=== PATIENT | male | born 1950 | race Caucasian/White ===

== ENCOUNTER 2020-09-30 07:59 | Day surgery (SDC) | payer OTHER ==
[2020-09-27 13:12] LABS: Absolute Lymphocytes (CBC) 1.4 K/uL (0.7-4.9); Basophils % 1.2 % (0-1.3); Hematocrit 36.5 % (39.6-49.0); Lymphocytes % 24.5 % (15.3-44.8); MPV 7.9 fL (7.6-11.3); RBC Red Blood Cell Count 4.95 M/uL (4.33-5.43)
[2020-09-27 13:25] LABS: Potassium 4.6 mmol/L (3.5-5.1)
--- NOTE | 2020-09-27 15:05 | RAD REPORT ---
EXAM DESCRIPTION: Jannet Dubose (2 Views)09/27/2020 2:49 pm CLINICAL HISTORY: Z01.812 COMPARISON: None FINDINGS: The lungs appear clear of acute infiltrate. The heart is normal size IMPRESSION: No acute abnormalities displayed
[2020-09-30] MEDS ORDERED: CEFAZOLIN/SWI 1gm 1 GM/10 ML SYR ONE (08:52)
[2020-09-30] MEDS ORDERED: NA CHLORIDE 0.9% 1,000 ML ONE (08:52)
[2020-09-30] MEDS ORDERED: propofoL 200 MG/20 ML VIAL IV ONE (09:19)
[2020-09-30] MEDS ORDERED: MIDAZOLAM HCL 2 MG/2 ML INJ ONE (09:20)
[2020-09-30] MEDS ORDERED: dexAMETHasone 10 MG/ML VIAL ONE (09:20)
[2020-09-30] MEDS ORDERED: FENTANYL CITR 100 MCG/2 ML ONE (09:20)
[2020-09-30] MEDS ORDERED: LIDOCAINE 1% MPF 2 ML AMPULE ONE (09:20)
[2020-09-30] MEDS ORDERED: KETOROLAC 30 MG/ML INJ ONE (09:20)
[2020-09-30] MEDS ORDERED: ONDANSETRON 4 MG/2 ML VIAL ONE (09:20)
--- NOTE | 2020-09-30 09:56 | P.BOP ---
Preoperative diagnosis: left anterior neck tender enlarging SubQ mass Postoperative diagnosis: same Primary procedure: Excisional biopsy Left anterior neck SubQ mass 3x3 cm Estimated blood loss: <10cc Specimen: mass Findings: as above Anesthesia: General Complications: None Transferred to: Recovery Room Condition: Good
[2020-09-30] MEDS ORDERED: TRAMADOL 37.5mg/APAP 325mg PER TAB PO ONE (10:55)
[2020-09-30] MEDS ORDERED: TRAMADOL 37.5mg/APAP 325mg PER TAB ONE (11:12)
[2020-09-30 12:06] VITALS: BP 144/85; TEMP 97.2; O2SAT 97
--- NOTE | 2020-09-30 16:05 | EKG ---
Test Date: 2020-09-30 Test Time: 08:07:14 Environmental Protection Inspector: TG MEASUREMENT RESULTS: Intervals: Rate: 74 MO: 166 QRSD: 80 QT: 414 QTc: 459 [place]: P: 30 MO: 166 QRS: -20 T: 38 INTERPRETIVE STATEMENTS: Normal sinus rhythm Inferior infarct, age undetermined Abnormal ECG Compared to ECG 11/26/2014 15:55:33 Myocardial infarct finding now present Sinus tachycardia no longer present Fusion complex(es) no longer present Ventricular premature complex(es) no longer present Electronically Signed On 09-30-20 16:03:50 CDT by Shai Bentley
--- NOTE | 2020-09-30 19:48 | DS ---
Date of Discharge: 09/30/2020 Diagnosis: Left anterior neck tender large subcutaneous mass. Procedure: Excisional biopsy of left anterior neck subcutaneous mass, 3 x 3 cm. Disposition: Home. Activity: As tolerated. No heavy lifting. Discharge Instructions: Keep area dry for 48 hours, then may shower. Keep Steri-Strip intact. Medications: Include Cipro 500 p.o. q.12. He is taking Ultracet. He does not have anymore. We are going to give him some Ultracet for pain q.6 hours p.r.n. pain. ERROL/MARIANN Voice ID: [id number] Report ID: [id number]
--- NOTE | 2020-09-30 19:48 | OP ---
Date of Procedure: 09/30/2020 Surgeon: Bhupinder Fernandez MD Preoperative Diagnosis: Left anterior neck tender large subcutaneous mass. Postoperative Diagnosis: Left anterior neck tender large subcutaneous mass. Procedure: Excisional biopsy of left anterior neck subcutaneous mass 3 x 3 cm. Anesthesia: General plus local. Indications: This is the case of a 70-year-old patient who has a neck mass increasing in size and te nderness. He wants that excised. The benefits, alternatives, and risks of excision were fully expla ined which include, but not limited to infection, bleeding, damage to adjacent structures, anesthesia complication, CO and even . He also understands this may not relieve his symptoms. He might n eed more than one surgical intervention depends on the final pathology. He understood, signed a cons ent. Procedure In Detail: The patient was brought to the operating room, placed in supine position. Anes thesia was done without complication. A time-out was called. Left neck was prepped and draped in a sterile fashion. A curvilinear incision was made with a knife after injecting local anesthetic. The mass was all the way down to subcutaneous tissue, does not penetrate the muscle. The mass was remov ed intact. The area was irrigated. This was closed in deep layers with 3-0 chromic, mid layers with 3-0 chromic and skin with 3-0 nylon. Sponge count and instrument counts were correct. Hemostasis was obtained before closure. The patient was s ent to Recovery in stable condition. ERROL/MARIANN Voice ID: [id number] Report ID: [id number]
== END 2020-09-30 11:15 | disposition home or self-care (01) ==
LOC: OR 07:59
PROVIDERS: ATTEND Surgery
PROC: 0JB50ZZ Excision of Left Neck Subcutaneous Tissue and Fascia, Open Approach (ICD-10-PCS; principal; 2020-09-30 09:30)
DX: L72.0 Epidermal cyst (principal); E11.9 Type 2 diabetes mellitus without complications; E78.00 Pure hypercholesterolemia, unspecified; E11.40 Type 2 diabetes mellitus with diabetic neuropathy, unspecified
CPT/HCPCS: 93005; 85025; 80048; 36415; 82947; 88304; 71046; 11423; J2704; J2250; J3010; J1100; J0690; J7030; J2405; 88305